=== PATIENT | male | born 1945 | race Caucasian/White ===

== ENCOUNTER → 2016-10-31 | Day surgery (SDC) | payer MEDICARE, OTHER ==
[~2016-10-31] VITALS: Ht 167.6 cm; Wt 65.8 kg
[~2016-10-31] MED LIST: ASPI-231 PO; ATOR20TA PO; CARV3.1240 PO; HYDR12.56 PO; IOHEXOL 350 MG/ML 100ML IJ ONE; LEVO125T66 PO; LIDOCAINE 2%HCL (LOCAL ANESTH.) INJ 20ML MDV ONE; LISI2.5T47 PO; LOSA50TA6 PO; MIDAZOLAM HCL 1MG/1ML-2 ML VIAL ONE; fentaNYL CITRATE 100 MCG/2 ML VL ONE
== END | disposition home or self-care (01) ==
LOC: CATH 10:00
PROVIDERS: ATTEND Internal Medicine Cardiovascular Disease
DX: I42.8 Other cardiomyopathies (principal)
CPT/HCPCS: 93005; 93458; C1760; C1894; J1644; J2250; J3010; Q9967; 99152